=== PATIENT | female | born 1970 | race Caucasian/White ===

== ENCOUNTER → 2019-03-12 | Outpatient (CLI) | payer OTHER ==
--- NOTE | 2019-03-13 03:17 | MR ---
EXAMINATION TYPE: MR shoulder RT wo con DATE OF EXAM: 03/12/2019 COMPARISON: None HISTORY: Rt shoulder pain TECHNIQUE: Multiplanar, multisequence imaging of the right shoulder is performed without contrast. FINDINGS: Subscapularis tendon is intact. Biceps tendon appears intact. There is small amount of fluid at the s houlder joint. There is mild fluid around the biceps tendon. The supraspinatus tendon shows minimal thickening. There is no retraction. The glenohumeral joint is anatomic. The glenoid timmy appear normal. There is no evidence of a fracture. I see no bony destruct yara process. There is mild spurring at the AC joint and mild subacromial impingement. IMPRESSION: There is some thickening of the supraspinatus tendon consistent with mild tendinitis. No evidence of a complete tear. Minimal subacromial impingement. Small shoulder joint effusion consisten t with synovitis. No fracture.
== END | disposition home or self-care (01) ==
LOC: RADMRIMAIN 20:29
PROVIDERS: ATTEND Orthopaedic Surgery
DX: M67.813 Other specified disorders of tendon, right shoulder (principal); M25.411 Effusion, right shoulder

== ENCOUNTER → 2019-06-16 | Outpatient (CLI) | payer OTHER ==
[2019-06-16 08:51] VITALS: BP 164/92; PULSE 91; RESP 18; TEMP 98.2
--- NOTE | 2019-06-16 09:41 | P.HPOB ---
History of Present Illness H&P Date: 06/16/19 Chief Complaint: The patient is here for her routine gynecologic exam. This is a 48-year-old with an LMP of 06/09/2019. She is here to establish with this office. She is status post tubal sterilization. The patient states it has been about 12 years since her last pelvic exam. Her menstrual periods were regular every month up until about 6 months ago. Since then they have been coming more frequent about every 3 weeks and are lasting about 6 days with 3 days of heavy flow. During the heavy days, she has to change her protection up to every 1-1/2 hours. She does pass clots on the heavy days. She denies any significant pain with menstrual periods. Review of Systems The patient's weight has been stable over the last year. She denies respiratory, cardiac, or G.I. problems. 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 History of Any Multi-Drug Resistant Organisms: None Reported Past Surgical History: Section, Tubal Ligation Additional Past Surgical History / Comment(s): One section after 2 previous vaginal deliveries. Past Psychological History: Anxiety, Depression Smoking Status: Current some day smoker (One pack per week) Past Alcohol Use History: Occasional (3 per month) Past Drug Use History: None Reported Additional History: She has been since 2005. She works at [employer] 9 months out of the year. - Past Family History Mother Family Medical History: Dementia Additional Family Medical History / Comment(s): Alzheimer's disease. . Maternal aunt had breast cancer. Father Family Medical History: Unable to Obtain Medications and Allergies Home Medications Medication Instructions Recorded Confirmed Type Escitalopram [Lexapro] 10 mg PO DAILY 06/16/19 06/16/19 History Allergies Allergy/AdvReac Type Severity Reaction Status Date / Time No Known Allergies Allergy Verified 06/16/19 08:52 Exam Vital Signs Temp Pulse Resp BP Pulse Ox 06/16/19 08:45 98.2 F 91 18 164/92 99 Intake and Output 06/15/19 06/16/19 06/16/19 22:59 06:59 14:59 Other: Weight 81.193 kg Repeat blood pressure 148/88. Height 5 feet 6 inches, weight 179 pounds, BMI 28.9. This is a well-developed well-nourished white female who is alert and oriented times 3 in no acute distress. HEENT: Within normal limits. NECK: Supple without mass or thyromegaly. CHEST AND LUNGS: Clear to auscultation. HEART: Regular rate and rhythm. BREASTS: Are without mass or discharge. AXILLARY EXAM: Negative for adenopathy. BACK: Negative for CVA tenderness. ABDOMEN: Soft, nontender, without palpable masses. PELVIC EXAM: Normal external genitalia. Cervix and vagina appear normal. There is no unusual discharge. There is no evidence of prolapse. The uterus is midposition, nongravid size and nontender. There are no palpable adnexal masses or tenderness. RECTAL EXAM: negative for mass or tenderness and is negative for occult blood. EXTREMITIES: Nontender. IMPRESSION: 1. 48-year-old female who is status post tubal ligation with a six-month history of menorrhagia with normal gynecologic exam. 2. Blood pressure elevation PLAN: 1. Pap smear was performed. 2. Self breast awareness was discussed with the patient. 3. Screening mammogram is scheduled for 07/01/2019. The order slip was given to the patient for this. 4. Blood studies will include TSH and CBC. 5. She will keep a menstrual calendar. 6. Trial of meclofenamate sodium 100 mg by mouth 3 times a day when necessary for heavy menstrual flow up to 6 days per cycle. The electronic prescription will be sent to [facility] in [place]. 7. If she is not having significant improvement with her menstrual periods in 3 months, she will call if can discuss other options including endometrial ablation. The ACOG FAQ handout on endometrial ablation was given to the patient. 8. Her elevated blood pressure was discussed. She states she will check her own blood pressure on a regular basis and will follow up with Dr. Malick alan for blood pressure elevations. 9. She was advised to return in one year for her annual well woman exam and as needed.
[2019-06-16 10:08] LABS: HCT 41.8 % (34.0-46.0); HGB 13.7 gm/dL (11.4-16.0); MCH 29.5 pg (25.0-35.0); MCHC 32.8 g/dL (31.0-37.0); Mean Platelet Volume 7.2; Platelet Count 318 k/uL (150-450); RBC 4.65 m/uL (3.80-5.40); RDW 12.9 % (11.5-15.5); WBC 7.5 k/uL (3.8-10.6)
== END | disposition home or self-care (01) ==
LOC: WWCWWP 08:38
PROVIDERS: ATTEND Obstetrics & Gynecology
DX: N92.0 Excessive and frequent menstruation with regular cycle (principal)
CPT/HCPCS: 84443; 85027

== ENCOUNTER 2022-11-19 11:51 | Day surgery (SDC) | payer OTHER ==
[2022-11-19] MEDS ORDERED: LIDOCAINE 1% (10MG/ML) FOR IV START INTRADERMA PRN (12:04)
[2022-11-19] MEDS ORDERED: LACTATED RINGERS 1,000 ML IV SCH (12:04)
[2022-11-19 12:15] VITALS: RESP 16; TEMP 97.6
[2022-11-19] MEDS ORDERED: PROPOFOL 10 MG/ML 20 ML VIAL IV ONE (12:32)
[2022-11-19] MEDS ORDERED: LIDOCAINE 2% INJ 20 MG/ML (2 ML VIAL) ONE (12:32)
--- NOTE | 2022-11-19 12:35 | P.GSHP ---
History of Present Illness H&P Date: 11/19/22 Chief Complaint: Colon cancer screening 52-year-old female here for colonoscopy. She has not had 1 previously. No bowel complaints. No family history of colon cancer. Past Medical History Past Medical History: No Reported History Additional Past Medical History / Comment(s): Routine colonoscopy History of Any Multi-Drug Resistant Organisms: None Reported Past Surgical History: Section, Tubal Ligation Additional Past Surgical History / Comment(s): One section after 2 previous vaginal deliveries. Past Anesthesia/Blood Transfusion Reactions: No Reported Reaction Smoking Status: Current every day smoker - Past Family History Mother Family Medical History: Dementia Additional Family Medical History / Comment(s): Alzheimer's disease. . Maternal aunt had breast cancer. Father Family Medical History: Unable to Obtain Medications and Allergies Home Medications Medication Instructions Recorded Confirmed Type Escitalopram [Lexapro] 25 mg PO HS 11/13/22 11/19/22 History Allergies Allergy/AdvReac Type Severity Reaction Status Date / Time No Known Allergies Allergy Verified 11/19/22 12:09 Surgical - Exam Vital Signs Temp Pulse Resp BP Pulse Ox 97.6 F 60 16 154/85 96 11/19/22 12:13 11/19/22 12:13 11/19/22 12:13 11/19/22 12:13 11/19/22 12:13 Physical exam: General: Well-developed, well-nourished HEENT: Normocephalic, sclerae nonicteric Abdomen: Nontender, nondistended Extremities: No edema Neuro: Alert and oriented Assessment and Plan (1) Colon cancer screening Narrative/Plan: Will proceed with colonoscopy at this time. Current Visit: Yes Status: Acute Code(s): Z12.11 - ENCOUNTER FOR SCREENING FOR MALIGNANT NEOPLASM OF COLON SNOMED Code(s): 010779409
--- NOTE | 2022-11-19 12:49 | P.PCN ---
Date of Procedure: 11/19/22 Procedure(s) Performed: PREOPERATIVE DIAGNOSIS: Colon cancer screening POSTOPERATIVE DIAGNOSIS: Cecal polyp 2, diverticulosis PROCEDURE: Colonoscopy with snare polypectomy ANESTHESIA: MAC SURGEON: Michael Ruano M.D. SPECIMENS: Polyps ENDOSCOPIC PROCEDURE: The patient was placed on the endoscopy table in the left decubitus position. The Olympus colonoscope was inserted into the anus and passed under direct visualization to the base of the cecum. The appendiceal orifice was visualized. From that point the scope was slowly withdrawn inspecting all surfaces carefully. There were 2 small polyps of the base of the cecum removed using the snare with cautery technique. The remainder of the cecum and ascending , transverse, descending, sigmoid and rectum appeared normal. There was mild left-sided diverticulosis noted. Digital rectal examination was normal. The patient was taken to the recovery room in stable condition per anesthesia guidelines. RECOMMENDATIONS: Await biopsy results. Anticipate repeat colonoscopy 5 years.
[2022-11-19 13:42] VITALS: BP 143/87; PULSE 73
== END 2022-11-19 13:45 | disposition home or self-care (01) ==
LOC: ORWHC2ENDO 11:51
PROVIDERS: ATTEND Surgery
DX: Z12.11 Encounter for screening for malignant neoplasm of colon (principal); D12.0 Benign neoplasm of cecum; K57.30 Diverticulosis of large intestine without perforation or abscess without bleeding; F17.200 Nicotine dependence, unspecified, uncomplicated; Z79.811 Long term (current) use of aromatase inhibitors
CPT/HCPCS: 81025; 88305; 45385; J2704; J2001

== ENCOUNTER → 2023-03-10 | Outpatient (CLI) | payer OTHER ==
--- NOTE | 2023-03-10 13:53 | XR ---
EXAMINATION TYPE: XR elbow complete LT DATE OF EXAM: 03/10/2023 COMPARISON: NONE HISTORY: Pain FINDINGS: Three views of the elbow demonstrate no pathologic joint effusion. The osseous structures are intact . There is no acute fracture or dislocation. Slight cortical irregularity along the anterior margin of the proximal radius. IMPRESSION: 1. No definite acute process. Slight cortical irregularity along the proximal volar surface radius. R ecommend short-term follow-up bone scan.
== END | disposition home or self-care (01) ==
LOC: RADXRYALE 13:31
PROVIDERS: ATTEND Physician Assistant
DX: M25.522 Pain in left elbow (principal)

== ENCOUNTER → 2023-09-17 | Outpatient (CLI) | payer OTHER ==
--- NOTE | 2023-09-18 15:59 | CA ---
Transthoracic Echo Report Name: Noemy Weiss Age: 52 Gender: F : 1970 Exam Date: 09/17/2023 17:54 Exam Location: [facility] [facility] Ht (in): 56 Wt (lb): 195 Ordering Physician: Lonnie Leung DO Attending/Referring Phys: Jannet Lambert PAC Spares Scheduler Esther Buckley RDCS Procedure CPT: Indications: I10 ESSENTIAL (PRIMARY) HYPERTENSION Cardiac Hx: Technical Quality: Good Contrast 1: Total Dose (mL): Contrast 2: Total Dose (mL): MEASUREMENTS (Male / Female) Normal Values 2D ECHO LV Diastolic Diameter PLAX 4.9 cm 4.2 - 5.9 / 3.9 - 5.3 cm LV Systolic Diameter PLAX 3.2 cm IVS Diastolic Thickness 0.8 cm 0.6 - 1.0 / 0.6 - 0.9 cm LVPW Diastolic Thickness 0.9 cm 0.6 - 1.0 / 0.6 - 0.9 cm LV Relative Wall Thickness 0.4 LVOT Diameter 1.9 cm Aortic Root Diameter 2.5 cm LV Diastolic Volume MOD BP 102.2 cm??? 67 - 155 / 56 - 104 cm??? LV Systolic Volume MOD BP 36.0 cm??? 22 - 58 / 19 - 49 cm??? LV Ejection Fraction MOD BP 64.8 % >= 55 % LV Cardiac Index MOD BP 2783.0 cm???/min???m??? LV Diastolic Volume MOD 4C 104.6 cm??? LV Systolic Volume MOD 4C 40.2 cm??? LV Ejection Fraction MOD 4C 61.5 % LV Cardiac Index MOD 4C 2703.8 cm???/min???m??? LV Diastolic Length 4C 8.2 cm LV Systolic Length 4C 7.0 cm LV Diastolic Volume MOD 2C 100.7 cm??? LV Systolic Volume MOD 2C 32.0 cm??? LV Ejection Fraction MOD 2C 68.2 % LV Cardiac Index MOD 2C 2882.2 cm???/min???m??? LV Diastolic Length 2C 8.2 cm LV Systolic Length 2C 6.8 cm LA Volume 41.8 cm??? 18 - 58 / 22 - 52 cm??? LA Volume Index 21.7 cm???/m??? 16 - 28 cm???/m??? Ascending Aorta Diameter 2.8 cm DOPPLER AV Peak Velocity 171.7 cm/s AV Peak Gradient 11.8 mmHg AV Mean Gradient 6.4 mmHg AV Velocity Time Integral 34.6 cm LVOT Peak Velocity 136.0 cm/s LVOT Peak Gradient 7.4 mmHg LVOT Velocity Time Integral 25.0 cm LVOT Stroke Volume 72.6 cm??? LVOT Stroke Volume Index 41.3 ml/m??? LVOT Cardiac Index 3046.9 cm???/min???m??? AV Area Cont Eq vti 2.1 cm??? AV Area Cont Eq pk 2.3 cm??? Mitral E Point Velocity 77.7 cm/s Mitral A Point Velocity 69.9 cm/s Mitral E to A Ratio 1.1 MV Deceleration Time 165.6 ms PV Peak Velocity 143.3 cm/s PV Peak Gradient 8.2 mmHg FINDINGS Left Ventricle Left ventricular ejection fraction is estimated at 60-65 %. Left ventricular cavity size normal. Left ventricular wall thickness normal. No obvious regional wall motion abnormalities. Right Ventricle Normal right ventricular size and function. Unable to estimate the right ventricular systolic pressure. Right Atrium Normal right atrial size. Left Atrium Normal left atrial size. Mitral Valve Structurally normal mitral valve. No mitral stenosis, regurgitation or prolapse. Aortic Valve Trileaflet aortic valve. No aortic valve stenosis or regurgitation. Tricuspid Valve Structurally normal tricuspid valve. No tricuspid stenosis. Trace tricuspid regurgitation. Pulmonic Valve Structurally normal pulmonic valve. No pulmonic stenosis. No pulmonic regurgitation. Pericardium No pericardial effusion. Aorta Normal size aortic root and proximal ascending aorta. CONCLUSIONS Normal LV size and function Previewed by: Dr. Elmo Roth MD (Electronically Signed) Final Date: 18 September 2023 15:58
== END | disposition home or self-care (01) ==
LOC: RADECHMAIN 17:47
PROVIDERS: ATTEND Family Medicine
DX: I10 Essential (primary) hypertension (principal)
CPT/HCPCS: 93306